=== PATIENT | female | born 1930 | race Caucasian/White ===

== ENCOUNTER → 2016-07-14 | Outpatient (CLI) | payer OTHER ==
[~2016-07-14] MED LIST: ACET-1138 PO; AMLO-110 PO; ASPEC81 PO; ATOR-22 PO; DVN/160 PO; DVN80 PO; EZET10TA63 PO; FURO-85 PO; GLC/500 PO; GLIP-199 PO; MELO7.5T5 PO; METH-589 PO; METO50TA16 PO; MULT-506 PO; ONDA8TAB6 PO; REPA1TAB42 PO; ULT50X PO
--- NOTE | 2016-07-14 16:27 | DIAGNOSTIC IMAGING REPORT ---
BILATERAL CAROTID DOPPLER STUDY HISTORY: Preop. CAROTID BRUIT COMPARISON: None. TECHNIQUE: Real-time, grayscale, and color Doppler sonography of the carotid arteries was performed. Imaging reviewed in the transverse and longitudinal planes. All measurements were calculated based on NASCET criteria. FINDINGS: Antegrade flow is seen in the bilateral vertebral arteries. The brachial pressures are hemodynamically similar. Mild calcified plaque within the bilateral carotid bifurcations. The peak systolic velocity within the right ICA is 53 cm/s. The right systolic ratio is 0.5. The peak systolic velocity within the left ICA is 71 cm/s. The left systolic ratio is 0.8. IMPRESSION: No hemodynamically significant stenosis seen within the carotid arteries. Electronically signed by: Filemon Boyd M.D. 07/14/2016 4:26 PM Dictated Date/Time: 07/14/2016 4:25 PM
== END | disposition home or self-care (01) ==
LOC: C.ULTR 15:37
PROVIDERS: ATTEND Anesthesiology
DX: R09.89 Other specified symptoms and signs involving the circulatory and respiratory systems (principal)

== ENCOUNTER 2016-07-27 07:38 | Inpatient (IN) | payer OTHER ==
[2016-05-03 11:14] VITALS: BMI 27.0
--- NOTE | 2016-05-03 12:03 | PAT Medication Instructions ---
Service Date May 03, 2016. Current Home Medication List Atorvastatin (Lipitor), 20 MG PO HS Ezetimibe (Zetia), 10 MG PO HS Furosemide (Lasix), 20 MG PO QAM Glipizide (Glipizide Er), 1 TAB PO for AM Meloxicam (Mobic), 15 MG PO QPM Metformin Hcl (Glucophage), 500 MG PO TID Methimazole (Methimazole ), 5 MG PO QPM Metoprolol Tartrate (Lopressor) (Lopressor), 50 MG PO QAM Valsartan (Diovan), 160 MG PO QAM Valsartan (Diovan), 80 MG PO QPM Medication Instructions For Your Scheduled Surgery - Per surgeon's instructions: Meloxicam (Mobic), 15 MG PO QPM - Hold the following medications 48 hours prior to surgery: Metformin Hcl (Glucophage), 500 MG PO TID - Hold the following medications 24 hours prior to surgery: Valsartan (Diovan), 160 MG PO QAM Valsartan (Diovan), 80 MG PO QPM - Hold the following medications the morning of surgery: Furosemide (Lasix), 20 MG PO QAM Glipizide (Glipizide Er), 1 TAB PO for AM - Take the following medications the morning of surgery with a sip of water OTHERWISE NOTHING TO EAT OR DRINK AFTER MIDNIGHT: Metoprolol Tartrate (Lopressor) (Lopressor), 50 MG PO QAM - Take the following medications as scheduled the night before surgery: Atorvastatin (Lipitor), 20 MG PO HS Ezetimibe (Zetia), 10 MG PO HS Methimazole (Methimazole ), 5 MG PO QPM If you have any questions please call us at [phone] (Irina Ramsey PA-C ) or [phone] or [phone]
[2016-05-03 13:05] LABS: URINE APPEARANCE CLEAR (CLEAR); URINE BILIRUBIN NEG (NEG); URINE COLOR YELLOW; URINE NITRITE NEG (NEG); URINE PH 7.5 (4.5-7.5); UROBILINOGEN NEG (NEG)
[2016-05-03 13:09] LABS: MANUAL MICROSCOPIC REQUIRED? NO; REVIEW REQ? NO
[2016-05-03 13:16] LABS: PARTIAL THROMBOPLASTIN RATIO 0.9; PROTHROMBIN TIME (PATIENT) 11.1 SECONDS (9.0-12.0)
[2016-05-03 13:22] LABS: BASO % 0.7 %; BASO ABS # 0.03 K/uL (0-0.2); COMPLETE YES; HEMATOCRIT 39.4 % (37-47); IG% 0.2 %; LYMPH % 27.5 %; LYMPH ABS # 1.22 K/uL (1.2-3.4); MEAN CELL VOLUME 88.1 fL (80-100); MEAN CORPUSCULAR HEMOGLOBIN 31.5 pg (25-34); MEAN CORPUSCULAR HGB CONC 35.8 g/dl (32-36); MEAN PLATELET VOLUME 10.1 fL (7.4-10.4); MONO % 7.7 %; NEUT % 61.9 %; PLATELET COUNT 115 K/uL (130-400); RED BLOOD COUNT 4.47 M/uL (4.2-5.4); WHITE BLOOD COUNT 4.43 K/uL (4.8-10.8)
[2016-07-14 14:22] VITALS: BMI 27.0
--- NOTE | 2016-07-14 15:11 | PAT Medication Instructions ---
Service Date Jul 14, 2016. Current Home Medication List Amlodipine (Norvasc), 5 MG PO QAM Atorvastatin (Lipitor), 20 MG PO HS Ezetimibe (Zetia), 10 MG PO HS Glipizide (Glipizide Er), 1 TAB PO QAM Metformin Hcl (Glucophage), 500 MG PO TID Methimazole (Methimazole ), 5 MG PO TID Metoprolol Tartrate (Lopressor) (Lopressor), 50 MG PO BID Multivitamin (Multivitamin), 1 TAB PO QAM Repaglinide (Prandin), 1 MG PO TID Medication Instructions For Your Scheduled Surgery - Hold the following medications 48 hours prior to surgery: Metformin Hcl (Glucophage), 500 MG PO TID - Hold the following medications the morning of surgery: Glipizide (Glipizide Er), 1 TAB PO QAM Multivitamin (Multivitamin), 1 TAB PO QAM Repaglinide (Prandin), 1 MG PO TID - Take the following medications the morning of surgery with a sip of water: Amlodipine (Norvasc), 5 MG PO QAM Methimazole (Methimazole ), 5 MG PO TID Metoprolol Tartrate (Lopressor) (Lopressor), 50 MG PO BID - Hold the following medications as scheduled the night before surgery: Ezetimibe (Zetia), 10 MG PO HS - Take the following medications as scheduled the night before surgery: Atorvastatin (Lipitor), 20 MG PO HS Methimazole (Methimazole ), 5 MG PO TID Metoprolol Tartrate (Lopressor) (Lopressor), 50 MG PO BID Repaglinide (Prandin), 1 MG PO TID If you have any questions please call us at [phone] (Luda Merchant PA-C) or [phone] or [phone]
--- NOTE | 2016-07-26 12:04 | HISTORY & PHYSICAL EXAMINATION ---
DATE OF ADMISSION: 07/27/2016 CHIEF COMPLAINT: Left hip pain. 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 She has significant pain and limitation with any activities of daily living. She has pain with prolonged weightbearing and standing activities. She has difficulty in any kneeling, bending, or squatting activities. These are affecting her ability to perform steps, go shopping, etc. PAST MEDICAL HISTORY: Type 2 diabetes, hyperlipidemia, hypertension. PAST SURGICAL HISTORY: Left mastectomy, x3, thyroid biopsy. MEDICATIONS: Diovan 160 mg b.i.d., Glucotrol-XL 10 mg daily, Lasix 20 mg daily, Lipitor 20 mg at bedtime, metformin HCL 500 mg 1 tablet 3 times daily with meals, Mobic 15 mg daily, Tapazole 5 mg daily, Toprol-XL 50 mg daily, Zetia 10 mg daily. ALLERGIES: ACTOS, CODEINE, LATEX. SOCIAL HISTORY AND REVIEW OF SYSTEMS: Noncontributory. PHYSICAL EXAMINATION: GENERAL: Well-nourished, well-developed elderly female who appears her stated age. HEAD, EYES, EARS, NOSE, AND THROAT: Normocephalic, atraumatic, extraocular movements intact, oropharynx pink and moist. NECK: Supple without adenopathy. LUNGS: Clear to auscultation bilaterally. HEART: Regular rate and rhythm. ABDOMEN: Soft, nontender, nondistended, obese. EXTREMITIES: The upper extremity within normal limits. The left hip demonstrates limited range of motion. There is significant limitation of internal/external rotation with pain at end range. X-RAYS: X-rays were reviewed. She has severe osteoarthritis about the left hip with complete loss of the joint space. There is evidence of osteophyte formation about the femoral head and acetabulum. There is subchondral sclerosis. ASSESSMENT: Left hip degenerative joint disease. PLAN: Risks versus benefits were discussed. Consent was obtained. The patient's primary care physician is Dr. Sanjeev Mason. Her profiling machine set up operator is Dr. Hope. Will proceed with left total hip arthroplasty upon preop workup and medical clearance.
[2016-07-27] VITALS (10 sets, daily range): BP systolic 109–157; BP diastolic 62–76; PULSE 71–80; TEMP 36.5–36.8; O2SAT 97–100; Ht 162.6 cm; Wt 71.7 kg
[~2016-07-27] VITALS: Ht 162.6 cm; Wt 71.7 kg
[2016-07-27] MEDS: TRANEXAMIC ACID INJ 1,000 MG in SODIUM CHLORIDE 0.9% 100ML 100 ML IV SCH ×2 (06:30→09:16)
[~2016-07-27 07:38] MED LIST changes: -ACET-1138 PO; +ACETAMINOPHEN 500 MG TAB PO SCH; -ASPEC81 PO; +BUPIVACAINE 0.5 % 5 MG/1 ML PF 10ML VIAL ONE; +CEFAZOLIN 1000MG/55 ML D5W 55 ML IV SCH; +CeleBREX 200 MG CAP PO SCH; +DEXAMETHASONE 4 MG TAB PO SCH; -DVN/160 PO; -DVN80 PO; +FAMOTIDINE 20 MG TAB PO SCH; -FURO-85 PO; +GABAPENTIN 300 MG CAP PO SCH; +LACTATED RINGER'S 1000ML 1,000 ML IV SCH; +LACTATED RINGER'S 1000ML IV SCH; -MELO7.5T5 PO; +METOCLOPRAMIDE HCL 10 MG TAB PO SCH; -ONDA8TAB6 PO; +ROPIVACAINE 5MG/ML 30 ML 150 MG, BUPIVACAINE/EPINEPHR 0.5% MPF 30 ML, KETOROLAC TROMETH... INFIL SCH; -ULT50X PO
[2016-07-27] MEDS ORDERED: EpHEDrine SULFATE INJ 50 MG/ML AMP IV PRN (07:45)
[2016-07-27] MEDS ORDERED: ATROPINE SULFATE 0.1 MG/ML 5ML SYR IV PRN (07:45)
[2016-07-27] MEDS ORDERED: ONDANSETRON INJ 2 MG/ML 2 ML VIAL IV PRN ×2 (07:45→11:30)
[2016-07-27] MEDS ORDERED: FENTANYL CITRATE INJ 50 MCG/1 ML 2 ML VIAL IV PRN (07:45)
--- NOTE | 2016-07-27 08:11 | History & Physical Bridge Note ---
H&P Re-Evaluation Bridge Note: I have examined the patient, reviewed the History & Physical and in the interval since the performance of the History & Physical I have noted the following changes of clinical significance: No changes noted
[2016-07-27] MEDS ORDERED: FENTANYL CITRATE INJ 50 MCG/1 ML 2 ML VIAL ONE (08:37)
[2016-07-27] MEDS ORDERED: BACITRACIN 50000 UNIT VIAL ONE (09:43)
[2016-07-27] MEDS ORDERED: ORTHO JOINT ANESTHETIC ONE (09:43)
[2016-07-27] MEDS ORDERED: POVIDONE-IODINE OP SOLN 30 ML BTL ONE (09:43)
--- NOTE | 2016-07-27 11:00 | [facility] Post Operative Brief Note ---
Immediate Operative Summary Operative Date Jul 27, 2016. Pre-Operative Diagnosis Left hip degenerative joint disease Post-Operative Diagnosis Left hip degenerative joint disease Procedure(s) Performed Right total hip arthroplasty-Uncemented Surgeon Dr. Flores Survey Project Manager Surgeon(s) Sarwat Cabrera PA-C Estimated Blood Loss 100 ml Findings severe OA hip Specimens A. Left Femur Head Disposition Recovery Room / PACU
[2016-07-27] MEDS ORDERED: PHENYLEPHRINE 100MCG/ML 5ML SYR ONE (11:11)
[2016-07-27] MEDS ORDERED: PROPOFOL IV EMULSION 10 MG/ML 20 ML VIAL IV ONE (11:11)
[2016-07-27] MEDS ORDERED: LIDOCAINE HCL 2% 2 ML VIAL (20MG/ML) ONE (11:11)
[2016-07-27] MEDS ORDERED: OXYCODONE HCL IR 5 MG TAB (IMMEDIATE RELEASE) PO PRN (11:30)
[2016-07-27] MEDS ORDERED: ZOLPIDEM TARTRATE 5 MG TAB PO PRN (11:30)
[2016-07-27] MEDS ORDERED: DiphenhydrAMINE HCL 50 MG/ML VIAL IV PRN (11:30)
[2016-07-27] MEDS ORDERED: HYDROmorphone INJ 1 MG/ML SYR IV PRN (11:30)
[2016-07-27] MEDS ORDERED: BISACODYL 10 MG SUPP PR PRN (11:30)
[2016-07-27] MEDS ORDERED: MAGNESIUM HYDROXIDE SUSP 30 ML UDC PO PRN (11:30)
[2016-07-27] MEDS ORDERED: ALUMINUM/MAGNESIUM/SIMETH (MAALOX MAX) 30 ML UDC PO PRN (11:30)
--- NOTE | 2016-07-27 12:17 | DIAGNOSTIC IMAGING REPORT ---
LEFT PELVIS/UNILATERAL HIP 1 VIEW CLINICAL HISTORY: IN PACU - A/P PELVIS and LATERAL HIP INCLUDING ALL OF IMPLANT COMPARISON: None. DISCUSSION: Total left hip replacement. Good contact between prosthetic and underlying bone. Old left pubic ring fracture. Expected postoperative change IMPRESSION: Left hip replacement in good position. Old pelvic ring fracture Electronically signed by: Lukasz Negrete M.D. 07/27/2016 12:15 PM Dictated Date/Time: 07/27/2016 12:14 PM
[2016-07-27] MEDS: FERROUS GLUCONATE 324 MG TAB PO SCH ×2 (12:30→17:42)
--- NOTE | 2016-07-27 13:50 | OPERATIVE REPORT ---
DATE OF OPERATION: 07/27/2016 PREOPERATIVE DIAGNOSIS: Osteoarthritis left hip. POSTOPERATIVE DIAGNOSIS: Osteoarthritis left hip. PROCEDURE: Left connective total hip arthroplasty. SURGEON: Dr. Flores. MUSIC ADAPTER: MARI Flores. ANESTHESIA: Spinal. COMPLICATIONS: None. OPERATION AND FINDINGS: DESCRIPTION OF PROCEDURE: Following induction of adequate spinal anesthesia, the patient was placed in right lateral decubitus position and left Nomi-Langenbeck incision was made. Subcutaneous tissue was sharply dissected.? Electrocautery used for hemostasis.? The fascia was incised throughout the length of the wound and a Hutchison scissors placed beneath the short external rotators.? The pyriformis was tagged with #1 Vicryl. The short external rotators were divided from the posterior aspect of the femur using electrocautery. These were swept posteriorly. A T-capsulotomy incision was made and the hip was dislocated using a combination of flexion, adduction, and internal rotation. Exposure of the femoral neck with old-style Hohmann and a blunt Hohmann was carried out and a femoral rasp was utilized as a guide for making the appropriate level femoral neck cut. This bone fragment was removed and reserved on the back table. Next, attention was turned to the acetabulum where bone hook was used to retract the femur while the offset retractors were placed anterior and posteriorly.? A double-angled Hohmann was placed in superior and anterior position exposing the acetabulum nicely.? Acetabular labrum as well as posterior capsule elements were removed using a long knife and a long pickup.? Fovea centralis was cleared of all soft tissue.? Sequential reamings were carried up to an acetabular reamer used and decision was made to proceed with impaction of a 50 ?trabecular metal cup.? This was impacted and held using a single 35 mm bone screw. ?The acetabular liner was placed with 15 of elevated posterior wall in the superior and posterior position. ?Next, attention was turned to the femoral portion of the case where a Bovie and pickup was used to further clear short external rotators from their insertion on the femur. Box osteotome was used to gain access to the femoral canal and the T-handled rasp and a rattail rasp were used to further open and lateral the canal.? Sequentially raspings were carried up to a 5 which gave good fit and fill of the proximal femur. A trial reduction was carried out and 5 offset femoral neck component was chosen as the size to be used. ?A -2.5 x 36 ceramic femoral head was impacted into position, +0 head was utilized. ?The trial reduction was stable in all degrees of rotation with no [id number] impingement.? The hip was dislocated. The trial components were removed and the final femoral stem, neck, and femoral head combination were assembled on the back table and impacted into position.? Hip was relocated.? Range of motion checked once again successful and the wound was irrigated. The pyriformis repaired to the greater trochanter using #1 Vicryl [id number] suture.? A Hemovac drain was placed and the fascia was closed using #1 Vicryl, subcutaneous tissue was closed using 0 Dexon, and skin was closed with glenys. Sterile dressing of Adaptic, 4 x 4's, ABDs, and foam tape was applied. The patient tolerated the procedure well. Due to the complex nature of the procedure, the entire surgery was performed with the operational assistance of Sarwat Cabrera PA-C. The sales assistant, under direct supervision, was involved in the actual performance of all aspects of the surgical procedure including hemostasis, tissue retraction and incision, instrument management, patient positioning, and wound closure. I attest to the content of the Intraoperative Record and any orders documented therein. Any exceptio ns are noted below.
--- NOTE | 2016-07-27 13:51 | Anesthesiology Progress Note ---
Anesthesia Post Op Note Date & Time Jul 27, 2016 at 13:50 Vital Signs Pain Intensity: 0 Vital Signs Past 12 Hours Date Time Temp Pulse Resp B/P Pulse Ox O2 Delivery O2 Flow Rate FiO2 07/27/16 13:11 65 14 97 07/27/16 13:11 64 14 07/27/16 13:08 104/46 07/27/16 13:06 64 11 98 07/27/16 13:06 64 11 07/27/16 13:03 108/49 07/27/16 13:01 70 16 07/27/16 13:01 69 16 100 07/27/16 12:58 89/59 07/27/16 12:56 67 17 98 07/27/16 12:56 67 17 07/27/16 12:53 97/48 07/27/16 12:51 62 12 07/27/16 12:51 62 12 99 07/27/16 12:48 98/40 07/27/16 12:46 69 16 100 07/27/16 12:46 68 16 07/27/16 12:43 102/48 07/27/16 12:41 63 12 100 07/27/16 12:41 63 12 07/27/16 12:38 109/48 07/27/16 12:36 59 11 07/27/16 12:36 59 11 100 07/27/16 12:33 109/56 07/27/16 12:31 60 11 100 07/27/16 12:31 60 11 07/27/16 12:30 36.6 07/27/16 12:28 114/50 07/27/16 12:26 67 13 100 07/27/16 12:26 66 13 07/27/16 12:23 92/51 07/27/16 12:21 58 14 100 07/27/16 12:21 60 14 07/27/16 12:18 103/51 07/27/16 12:16 56 14 100 07/27/16 12:16 56 14 07/27/16 12:13 100/54 07/27/16 12:11 61 13 07/27/16 12:11 61 13 100 07/27/16 12:08 124/61 07/27/16 12:06 64 13 07/27/16 12:06 64 13 100 07/27/16 12:05 64 16 100 07/27/16 12:05 63 16 07/27/16 12:03 97/39 07/27/16 12:00 60 10 07/27/16 12:00 60 10 100 07/27/16 11:58 113/52 07/27/16 11:55 62 11 07/27/16 11:55 63 11 100 07/27/16 11:53 114/65 07/27/16 11:50 61 10 07/27/16 11:50 62 10 100 07/27/16 11:48 108/57 07/27/16 11:45 63 13 100 07/27/16 11:45 63 13 07/27/16 11:43 121/58 07/27/16 11:40 63 15 07/27/16 11:40 63 15 100 07/27/16 11:38 115/61 07/27/16 11:35 74 16 07/27/16 11:35 74 16 100 07/27/16 11:33 119/57 07/27/16 11:30 65 20 07/27/16 11:30 65 20 100 07/27/16 11:28 134/74 07/27/16 11:25 65 15 112/55 83 07/27/16 11:25 36.9 66 14 112/55 100 Nasal Cannula 3 07/27/16 11:25 63 15 07/27/16 08:34 97 Room Air 07/27/16 08:23 36.7 71 18 157/63 Notes Mental Status: alert / awake / arousable, participated in evaluation Pt Amnestic to Procedure: Yes Nausea / Vomiting: adequately controlled Pain: adequately controlled Airway Patency, RR, SpO2: stable & adequate BP & HR: stable & adequate Hydration State: stable & adequate Neuraxial Anesthesia: was administered, sensory block is resolving Anesthetic Complications: no major complications apparent Noted patient with slight pupillary difference and one eye lid did not close as well as the other. When questioned, patient stated this happened after a fall and was told it had something to do with the "eye muscles not working well." She denied this was a new problem and otherwise was awake and conversant and responding appropriately so deemed ok for transfer to the floor.
[2016-07-27] MEDS ORDERED: GLUCOSE 10 TABS/TUBE PO PRN (15:15)
[2016-07-27] MEDS ORDERED: GLUCOSE 40% GEL 15 GM TUBE PO PRN (15:15)
[2016-07-27] MEDS ORDERED: DEXTROSE 50% 50 ML SYR IV PRN (15:15)
[2016-07-27] MEDS ORDERED: GLUCAGON FOR INJ 1 MG VIAL SQ PRN (15:15)
[2016-07-27] MEDS ORDERED: FLUCONAZOLE 100 MG TAB PO ONE (15:30)
[2016-07-27] MEDS ORDERED: NURSING DECISION MEDICATION ORDER SCH (15:45)
[2016-07-27] MEDS: SODIUM CHLORIDE 0.9% 1000ML 1,000 ML IV SCH (15:59)
[2016-07-27] MEDS ORDERED: MICONAZOLE NITRATE POWDER 43 GM EXT PRN (16:00)
[2016-07-27] MEDS: METHIMAZOLE 5 MG TAB PO SCH ×2 (16:01→21:30)
[2016-07-27] MEDS: ACETAMINOPHEN 500 MG TAB PO SCH ×2 (16:06→21:32)
[2016-07-27] MEDS: REPAGLINIDE 1 MG TAB PO SCH (17:42)
[2016-07-27] MEDS: CEFAZOLIN IV 1,000 MG in DEXTROSE 5% 50ML 50 ML IV SCH (17:43)
[2016-07-27] MEDS ORDERED: NURSING VERBAL MED ORDER ONE (17:45)
[2016-07-27] MEDS: INSULIN ASPART 100 UNITS/ML 3 ML PEN SC SCH ×2 (17:50→21:41)
[2016-07-27] MEDS ORDERED: NYSTATIN CR 15 GM TUBE EXT PRN (18:00)
[2016-07-27] MEDS ORDERED: INSULIN ASPART 100 UNITS/ML 3 ML PEN SC SCH (21:00)
[2016-07-27] MEDS: SENNA 8.6 MG TAB PO SCH (21:30)
[2016-07-27] MEDS: DOCUSATE SODIUM 100 MG CAP PO SCH (21:30)
[2016-07-27] MEDS: ASPIRIN 81 MG ECTAB PO SCH (21:30)
[2016-07-27] MEDS: EZETIMIBE 10MG TAB PO SCH (21:30)
[2016-07-27] MEDS: METOPROLOL TARTRATE 50 MG TAB PO SCH (21:31)
[2016-07-27] MEDS: ATORVASTATIN 20 MG TAB PO SCH (21:33)
--- NOTE | 2016-07-27 22:21 | CONSULTATION REPORT ---
DATE OF CONSULTATION: 07/27/2016 CHIEF COMPLAINT: Left hip pain. HISTORY OF PRESENT ILLNESS: This is an 86-year-old female with history of severe osteoarthritis who failed outpatient conservative management, admitted to the hospital for left total hip arthroplasty. Currently, the patient denies any complaints. PAST MEDICAL HISTORY: Significant for type 2 diabetes mellitus, hyperlipidemia, hypertension. REVIEW OF SYSTEMS: Negative except as above. Ten out of 14 systems reviewed. PAST SURGICAL HISTORY: Left mastectomy, , thyroid biopsy, breast cancer. MEDICATIONS: Oral Diovan 160 mg p.o. b.i.d., Glucotrol XL 10 mg daily, Lasix 20 mg daily, Lipitor 20 mg at bedtime, metformin 500 mg 1 tablet 3 times a day with meals, Mobic 15 mg daily, Tapazole 5 mg p.o. daily, Toprol-XL 50 mg p.o. daily, Zetia 10 mg p.o. daily. ALLERGIES: CODEINE, LATEX, ACTOS. SOCIAL HISTORY: Does not smoke, does not drink, does not use drugs. FAMILY HISTORY: Significant for coronary artery disease. PHYSICAL EXAMINATION: GENERAL: Not in acute distress. HEENT: Normocephalic, atraumatic. PERRLA, EOMI. Mouth moist, no lesions. NECK: No JVD. Trachea midline. Thyroid is not enlarged. LUNGS: Clear to auscultation bilateral. No wheezes, no rhonchi. HEART: S1, S2. RRR. ABDOMEN: Soft, nontender, nondistended. Bowel sounds present bilateral. SKIN: No rash. No jaundice. EXTREMITIES: No clubbing, cyanosis or edema. IMAGING: Hip, pelvis x-ray: Left hip replacement in good position, old pelvic ring fracture. LABORATORIES: Not done except for glucose in the range of 206-232. Urinalysis was done before but not to date. ASSESSMENT AND PLAN: This is an 86-year-old female who was admitted for a left total hip arthroplasty and we are consulted for medical management. 1. Type 2 diabetes mellitus, on multiple oral medicines and not on insulin. There is no recent hemoglobin A1c which we will check during this admission. I would definitely hold metformin and may use glipizide 10 mg daily if patient eats breakfast and further meals. Can restart Prandin again if patient will eat. Due to patient receiving dexamethasone, her sugars may be elevated and therefore should be on insulin sliding scale as well as checking blood sugars before mealtime and bedtime. 2. History of hypertension and hyperlipidemia. Continue Zetia, metoprolol 50 mg p.o. b.i.d. 3. Hyperactive thyroid. Continue methimazole 5 mg p.o. t.i.d. Follow up with endocrinology. 4. Status post left total hip arthroplasty. DVT prophylaxis, pain management, PT, OT, allow placement as per surgery. The patient is a full code. Time spent doing this consult is 35 minutes. Thank you for consulting our group. HARPAL
[2016-07-28] VITALS (7 sets, daily range): BP systolic 118–132; BP diastolic 65–74; PULSE 66–75; TEMP 36.4–36.5; O2SAT 96–100
[2016-07-28] MEDS: CEFAZOLIN IV 1,000 MG in DEXTROSE 5% 50ML 50 ML IV SCH (01:57)
[2016-07-28] MEDS: SODIUM CHLORIDE 0.9% 1000ML 1,000 ML IV SCH (01:58)
[2016-07-28] MEDS: ACETAMINOPHEN 500 MG TAB PO SCH ×3 (05:44→21:12)
[2016-07-28] MEDS ORDERED: GlipiZIDE 5 MG TABCR (GLUCOTROL XL) PO SCH ×2 (06:00→08:30)
[2016-07-28 06:42] LABS: ESTIMATED AVERAGE GLUCOSE 117 mg/dl; HA1C FLAG Normal (Normal)
[2016-07-28 07:18] LABS: COMPLETE YES; HEMATOCRIT 31.7 % (37-47); IG% 0.3 %; LYMPH % 11.3 %; LYMPH ABS # 0.67 K/uL (1.2-3.4); MEAN CELL VOLUME 88.5 fL (80-100); MEAN CORPUSCULAR HEMOGLOBIN 30.2 pg (25-34); MEAN CORPUSCULAR HGB CONC 34.1 g/dl (32-36); MEAN PLATELET VOLUME 9.2 fL (7.4-10.4); MONO % 7.6 %; NEUT % 80.8 %; PLATELET COUNT 118 K/uL (130-400); RED BLOOD COUNT 3.58 M/uL (4.2-5.4); WHITE BLOOD COUNT 5.91 K/uL (4.8-10.8)
[2016-07-28 07:44] LABS: BUN/CREATININE RATIO 25.7 (10-20); CALCIUM 8.5 mg/dl (8.5-10.1); CREATININE 1.1 mg/dl (0.60-1.20); POTASSIUM 4.1 mmol/L (3.5-5.1)
--- NOTE | 2016-07-28 07:52 | Orthopedic Progress Note ---
Orthopedic Progress Note Date of Service Jul 28, 2016. Subjective Post OP Day: 1 Reports: feeling well Objective N/V intact, dressing C/D/I (Hemovac in place, will be d/c'd), toes mobile Date Time Temp Pulse Resp B/P Pulse Ox O2 Delivery O2 Flow Rate FiO2 07/28/16 07:12 Room Air 07/28/16 03:32 36.5 75 16 127/65 99 Room Air 07/27/16 23:25 Room Air 07/27/16 23:03 36.5 77 16 126/69 99 Room Air 07/27/16 21:26 80 129/69 07/27/16 20:16 36.5 77 16 109/62 100 Nasal Cannula 2.0 07/27/16 19:30 Nasal Cannula 2.0 07/27/16 17:21 36.5 73 16 123/71 99 Nasal Cannula 3.0 07/27/16 16:54 Nasal Cannula 3.0 07/27/16 16:24 36.5 75 16 135/74 100 Nasal Cannula 3.0 07/27/16 15:20 36.5 76 17 134/72 100 Nasal Cannula 3.0 07/27/16 14:50 75 16 127/76 100 07/27/16 14:20 100 Nasal Cannula 3.0 07/27/16 14:20 36.8 75 18 119/68 100 Nasal Cannula 3.0 07/27/16 14:04 71 14 99 07/27/16 14:04 71 14 07/27/16 14:03 124/60 07/27/16 13:59 73 14 100 07/27/16 13:59 63 14 07/27/16 13:58 122/54 07/27/16 13:54 69 12 07/27/16 13:54 69 12 100 07/27/16 13:53 118/62 07/27/16 13:49 72 12 07/27/16 13:49 71 12 100 07/27/16 13:48 36.9 137/65 07/27/16 13:47 73 20 07/27/16 13:47 72 20 99 07/27/16 13:43 127/61 07/27/16 13:42 74 15 07/27/16 13:42 74 15 99 07/27/16 13:38 107/44 07/27/16 13:37 69 11 98 07/27/16 13:37 68 11 07/27/16 13:33 108/49 07/27/16 13:32 70 13 95 07/27/16 13:32 70 13 07/27/16 13:28 104/45 07/27/16 13:27 70 11 100 07/27/16 13:27 70 11 07/27/16 13:23 117/48 07/27/16 13:22 73 9 89 07/27/16 13:22 72 9 07/27/16 13:18 110/42 07/27/16 13:17 69 16 99 07/27/16 13:17 69 16 07/27/16 13:13 102/52 07/27/16 13:12 65 12 97 07/27/16 13:12 65 12 07/27/16 13:11 65 14 97 07/27/16 13:11 64 14 07/27/16 13:08 104/46 07/27/16 13:06 64 11 98 07/27/16 13:06 64 11 07/27/16 13:03 108/49 07/27/16 13:01 70 16 07/27/16 13:01 69 16 100 07/27/16 12:58 89/59 07/27/16 12:56 67 17 98 07/27/16 12:56 67 17 07/27/16 12:53 97/48 07/27/16 12:51 62 12 07/27/16 12:51 62 12 99 07/27/16 12:48 98/40 07/27/16 12:46 69 16 100 07/27/16 12:46 68 16 07/27/16 12:43 102/48 07/27/16 12:41 63 12 100 07/27/16 12:41 63 12 07/27/16 12:38 109/48 07/27/16 12:36 59 11 07/27/16 12:36 59 11 100 07/27/16 12:33 109/56 07/27/16 12:31 60 11 100 07/27/16 12:31 60 11 07/27/16 12:30 36.6 07/27/16 12:28 114/50 07/27/16 12:26 67 13 100 07/27/16 12:26 66 13 07/27/16 12:23 92/51 07/27/16 12:21 58 14 100 07/27/16 12:21 60 14 07/27/16 12:18 103/51 07/27/16 12:16 56 14 100 07/27/16 12:16 56 14 07/27/16 12:13 100/54 07/27/16 12:11 61 13 07/27/16 12:11 61 13 100 07/27/16 12:08 124/61 07/27/16 12:06 64 13 07/27/16 12:06 64 13 100 07/27/16 12:05 64 16 100 07/27/16 12:05 63 16 07/27/16 12:03 97/39 07/27/16 12:00 60 10 07/27/16 12:00 60 10 100 07/27/16 11:58 113/52 07/27/16 11:55 62 11 07/27/16 11:55 63 11 100 07/27/16 11:53 114/65 07/27/16 11:50 61 10 07/27/16 11:50 62 10 100 07/27/16 11:48 108/57 07/27/16 11:45 63 13 100 07/27/16 11:45 63 13 07/27/16 11:43 121/58 07/27/16 11:40 63 15 07/27/16 11:40 63 15 100 07/27/16 11:38 115/61 07/27/16 11:35 74 16 07/27/16 11:35 74 16 100 07/27/16 11:33 119/57 07/27/16 11:30 65 20 07/27/16 11:30 65 20 100 07/27/16 11:28 134/74 07/27/16 11:25 65 15 112/55 83 07/27/16 11:25 36.9 66 14 112/55 100 Nasal Cannula 3 07/27/16 11:25 63 15 07/27/16 08:34 97 Room Air 07/27/16 08:23 36.7 71 18 157/63 Laboratory Results 24 Hours: Test 07/28/16 06:53 White Blood Count 5.91 K/uL Red Blood Count 3.58 M/uL Hemoglobin 10.8 g/dL Hematocrit 31.7 % Mean Corpuscular Volume 88.5 fL Mean Corpuscular Hemoglobin 30.2 pg Mean Corpuscular Hemoglobin Concent 34.1 g/dl Platelet Count 118 K/uL Mean Platelet Volume 9.2 fL Neutrophils (%) (Auto) 80.8 % Lymphocytes (%) (Auto) 11.3 % Monocytes (%) (Auto) 7.6 % Eosinophils (%) (Auto) 0.0 % Basophils (%) (Auto) 0.0 % Neutrophils # (Auto) 4.77 K/uL Lymphocytes # (Auto) 0.67 K/uL Monocytes # (Auto) 0.45 K/uL Eosinophils # (Auto) 0.00 K/uL Basophils # (Auto) 0.00 K/uL Assessment & Plan Assessment: 86 yo female stable POD #1 s/p left YELENA Plan: 1. Med management 2. DVT prophylaxis- ASA, TEDs, SCDs 3. PT/OT 4. D/C planning- home w/ HH
[2016-07-28] MEDS: REPAGLINIDE 1 MG TAB PO SCH ×3 (08:38→17:58)
[2016-07-28] MEDS: ASPIRIN 81 MG ECTAB PO SCH ×2 (08:38→21:12)
[2016-07-28] MEDS: FERROUS GLUCONATE 324 MG TAB PO SCH ×3 (08:38→17:45)
[2016-07-28] MEDS: MULTIVITAMIN TAB PO SCH (08:39)
[2016-07-28] MEDS: PANTOprazole SOD 40 MG TAB PO SCH (08:39)
[2016-07-28] MEDS: METHIMAZOLE 5 MG TAB PO SCH ×3 (08:39→21:12)
[2016-07-28] MEDS: AMLODIPINE BESYLATE 5 MG TAB PO SCH (08:39)
[2016-07-28] MEDS: METOPROLOL TARTRATE 50 MG TAB PO SCH ×2 (08:39→21:14)
[2016-07-28] MEDS: INSULIN ASPART 100 UNITS/ML 3 ML PEN SC SCH ×4 (08:40→21:00)
[2016-07-28] MEDS: DOCUSATE SODIUM 100 MG CAP PO SCH ×2 (09:03→21:00)
[2016-07-28] MEDS: TRAMADOL HCL 50 MG TAB PO PRN (17:24)
--- NOTE | 2016-07-28 20:24 | Progress Note ---
Subjective Date of Service: Jul 28, 2016. Subjective Pt evaluation today including: conversation w/ patient, conversation w/ family (daughter at bedside), physical exam, chart review, lab review, review of inpatient medication list Pain: left hip - mild PO Intake: normal no issues overnight patient feels well c/o dry skin and itchy rash in groin areas states she had a bowel movement yesterday passing flatus today Problem List Medical Problems: (1) Contusion of multiple sites Status: Acute (2) Fall Status: Acute (3) Hyperglycemia Status: Acute (4) Pelvis fracture Status: Acute (5) Traumatic retroperitoneal hemorrhage Status: Acute Review of Systems Constitutional: No fever Respiratory: No shortness of breath Cardiac: No chest pain Abdomen: No pain Objective Vital Signs Date Time Temp Pulse Resp B/P Pulse Ox O2 Delivery O2 Flow Rate FiO2 07/28/16 16:00 Room Air 07/28/16 15:04 36.4 67 16 130/74 100 Room Air 07/28/16 11:56 36.5 67 16 132/72 100 Room Air 07/28/16 10:10 98 Room Air 07/28/16 09:29 36.5 71 18 130/70 98 Room Air 07/28/16 08:34 72 124/71 07/28/16 07:12 Room Air 07/28/16 03:32 36.5 75 16 127/65 99 Room Air 07/27/16 23:25 Room Air 07/27/16 23:03 36.5 77 16 126/69 99 Room Air 07/27/16 21:26 80 129/69 Physical Exam General Appearance: no apparent distress ENT: pharynx normal Neck: no JVD Respiratory/Chest: lungs clear, no respiratory distress, no accessory muscle use Cardiovascular: regular rate, rhythm, no gallop, no murmur Abdomen: normal bowel sounds, non tender, soft, no organomegaly Extremities: no pedal edema Neurologic/Psychiatric: alert, oriented x 3 Skin: + pertinent finding (candidal rash in lower skin folds of abdomen/groin) Comments: musculo - left hip dressings intact Laboratory Results Last 24 Hours Test 07/27/16 20:34 07/28/16 06:53 07/28/16 07:53 07/28/16 11:34 Bedside Glucose 286 mg/dl 215 mg/dl 267 mg/dl White Blood Count 5.91 K/uL Red Blood Count 3.58 M/uL Hemoglobin 10.8 g/dL Hematocrit 31.7 % Mean Corpuscular Volume 88.5 fL Mean Corpuscular Hemoglobin 30.2 pg Mean Corpuscular Hemoglobin Concent 34.1 g/dl Platelet Count 118 K/uL Mean Platelet Volume 9.2 fL Neutrophils (%) (Auto) 80.8 % Lymphocytes (%) (Auto) 11.3 % Monocytes (%) (Auto) 7.6 % Eosinophils (%) (Auto) 0.0 % Basophils (%) (Auto) 0.0 % Neutrophils # (Auto) 4.77 K/uL Lymphocytes # (Auto) 0.67 K/uL Monocytes # (Auto) 0.45 K/uL Eosinophils # (Auto) 0.00 K/uL Basophils # (Auto) 0.00 K/uL RDW Standard Deviation 44.6 fL RDW Coefficient of Variation 13.8 % Immature Granulocyte % (Auto) 0.3 % Immature Granulocyte # (Auto) 0.02 K/uL Sodium Level 140 mmol/L Potassium Level 4.1 mmol/L Chloride Level 108 mmol/L Carbon Dioxide Level 23 mmol/L Anion Gap 9.0 mmol/L Blood Urea Nitrogen 28 mg/dl Creatinine 1.10 mg/dl Est Creatinine Clear Calc Drug Dose 36.3 ml/min Estimated GFR () 53.0 Estimated GFR (Non- 45.7 BUN/Creatinine Ratio 25.7 Random Glucose 213 mg/dl Calcium Level 8.5 mg/dl Test 07/28/16 17:01 Bedside Glucose 153 mg/dl Assessment and Plan 86yo female: 1. uncontrolled T2DM - should improve by tonight as effects of steroids given perioperatively yesterday should be waning. Would hold the sulfonylurea while hospitalized and resume day of discharge. In meantime use novolog for correction & carb coverage. Hold on any lantus at this time. 2. candidal rash - miconazole TID scheduled. 3. thrombocytopenia - mild, and appears chronic. Check b12, folate levels in am. Check cbc in am for stability. 4. mild acute blood loss anemia - agree with ferrous sulfate or gluconate BID. 5. HTN - controlled. Continue outpatient meds. 6. s/p left THR - dvt proph, pain control, dispo - per primary ortho team 7. bowel maintenance - add miralax daughter updated will follow
[2016-07-28] MEDS: SENNA 8.6 MG TAB PO SCH (21:00)
[2016-07-28] MEDS: MICONAZOLE NITRATE POWDER 43 GM EXT SCH (21:11)
[2016-07-28] MEDS: EZETIMIBE 10MG TAB PO SCH (21:22)
[2016-07-28] MEDS: ATORVASTATIN 20 MG TAB PO SCH (21:23)
[2016-07-29] MEDS: ACETAMINOPHEN 500 MG TAB PO SCH ×3 (05:55→22:09)
[2016-07-29 06:04] LABS: HEMATOCRIT 31.1 % (37-47); MEAN CELL VOLUME 88.6 fL (80-100); MEAN CORPUSCULAR HEMOGLOBIN 30.2 pg (25-34); MEAN CORPUSCULAR HGB CONC 34.1 g/dl (32-36); MEAN PLATELET VOLUME 9.2 fL (7.4-10.4); PLATELET COUNT 107 K/uL (130-400); RED BLOOD COUNT 3.51 M/uL (4.2-5.4); WHITE BLOOD COUNT 5.11 K/uL (4.8-10.8)
[2016-07-29 06:31] LABS: CALCIUM 8.9 mg/dl (8.5-10.1); CREATININE 1.1 mg/dl (0.60-1.20); POTASSIUM 4.2 mmol/L (3.5-5.1)
[2016-07-29 07:01] VITALS: BP 135/80; PULSE 67; TEMP 36.4; O2SAT 98
[2016-07-29] MEDS: MICONAZOLE NITRATE POWDER 43 GM EXT SCH ×3 (07:23→20:50)
[2016-07-29] MEDS: MULTIVITAMIN TAB PO SCH (07:27)
[2016-07-29] MEDS: METHIMAZOLE 5 MG TAB PO SCH ×3 (07:27→20:58)
[2016-07-29] MEDS: TRAMADOL HCL 50 MG TAB PO PRN ×2 (07:27→14:30)
[2016-07-29] MEDS: PANTOprazole SOD 40 MG TAB PO SCH (07:28)
[2016-07-29] MEDS: FERROUS GLUCONATE 324 MG TAB PO SCH ×5 (07:28→17:44)
[2016-07-29] MEDS: AMLODIPINE BESYLATE 5 MG TAB PO SCH (07:28)
[2016-07-29] MEDS: REPAGLINIDE 1 MG TAB PO SCH ×3 (07:28→17:45)
[2016-07-29] MEDS: INSULIN ASPART 100 UNITS/ML 3 ML PEN SC SCH ×4 (07:32→21:05)
[2016-07-29] MEDS: METOPROLOL TARTRATE 50 MG TAB PO SCH ×2 (08:44→21:01)
[2016-07-29] MEDS: ASPIRIN 81 MG ECTAB PO SCH ×2 (08:44→20:58)
[2016-07-29] MEDS: DOCUSATE SODIUM 100 MG CAP PO SCH ×2 (08:44→20:58)
--- NOTE | 2016-07-29 09:24 | Orthopedic Progress Note ---
Orthopedic Progress Note Date of Service Jul 29, 2016. Subjective Post OP Day: 2 Reports: feeling well, pain controlled w PO medications, Denies: SOB, calf pain , chest pain, complaints, light headedness, nausea / vomiting Objective calves soft nontender, N/V intact, hip located, capillary refill less than 2 sec., dressing C/D/I, A&O x3, toes mobile Date Time Temp Pulse Resp B/P Pulse Ox O2 Delivery O2 Flow Rate FiO2 07/29/16 07:10 Room Air 07/29/16 07:01 36.4 67 16 135/80 98 Room Air 07/29/16 00:55 Room Air 07/28/16 23:53 36.4 66 16 118/70 96 Room Air 07/28/16 16:00 Room Air 07/28/16 15:04 36.4 67 16 130/74 100 Room Air 07/28/16 11:56 36.5 67 16 132/72 100 Room Air 07/28/16 10:10 98 Room Air 07/28/16 09:29 36.5 71 18 130/70 98 Room Air Laboratory Results 24 Hours: Test 07/29/16 05:43 Hematocrit 31.1 % Hemoglobin 10.6 g/dL Assessment & Plan Assessment: 86 yo female stable POD #2 s/p left YELENA Plan: 1. Med management 2. DVT prophylaxis- ASA, TEDs, SCDs 3. PT/OT 4. D/C planning- home w/ HH Sunday Inhouse Planning Pain Management: Ultram, Dilaudid, PO Tylenol DVT Prophylaxis: TEDs, SCDs, ASA Discharge Planning Discharge Planning: home with home health Pain Management: Ultram, PO Tylenol DVT Prophylaxis: TEDs, ASA Therapy: Physical Therapy, Occupational Therapy
[2016-07-29 10:38] VITALS: BP 135/80; PULSE 67; O2SAT 98
--- NOTE | 2016-07-29 10:42 | PROGRESS NOTE ---
DATE: 07/29/2016 DATE: 07/29/2016. HISTORY OF PRESENT ILLNESS: Mrs. Bentley is a very pleasant 86-year-old white female with a history of type 2 diabetes mellitus, hypertension, hypercholesterolemia, chronic thrombocytopenia, and a negative dobutamine stress echocardiogram 05/09/2016. She is currently postoperative day #2 from a left total hip arthroplasty which has been complicated by a very mild asymptomatic blood loss anemia. The patient continues to do well from a surgical standpoint. Her pain is well controlled. She has been able to ambulate with a walker, and can get in and out of bed by herself. She offers no complaints today. She denies any chest pain, heaviness, tightness, or pressure. No neck, jaw, back, or arm pain. No shortness of breath, unusual dyspnea on exertion, orthopnea or PND. She has not had any palpitations, syncope, or near syncope. She has had a bowel movement, and her appetite is good. PHYSICAL EXAMINATION: VITAL SIGNS: Temperature is 36.4 degree Celsius, pulse 67 and regular, respiratory rate 14 and unlabored, blood pressure 135/80, SPO2 is 98% on room air. GENERAL: The patient is in no acute distress. HEAD, EYES, EARS, NOSE, AND THROAT: Head is atraumatic, normocephalic. EOMs intact. Sclerae are anicteric. Facies symmetric. No perioral cyanosis. Mucous membranes moist. NECK: Without thyromegaly, adenopathy, or JVD. Carotid upstrokes are +2 bilaterally. CHEST AND LUNGS: Clear to auscultation throughout all lung brantley, no wheezes, rales or rhonchi. CARDIOVASCULAR: S1 and S2 are regular without murmur, gallop or rub. PMI is nondisplaced. No lifts, heaves, or thrills. No abdominal, aortic or renal bruits. ABDOMINAL EXAMINATION: Bowel sounds present. No masses, organomegaly or tenderness. EXTREMITIES: Without clubbing, cyanosis or edema. NEUROLOGIC EXAMINATION: The patient is awake, alert and oriented. Pleasant and cooperative. Answers questions appropriately. Speech is clear. Normal movement in bilateral upper extremities. Gait pattern not assessed. LABORATORY DATA: White blood cell count is 5.11, hemoglobin 10.6 g/dL, hematocrit 31.1%. Platelet count 107,000. Sodium is 143 mmol/L, potassium 4.2 mmol/L. BUN 29 mg/dL. Creatinine 1.10 mg/dL. Random glucose 74 mg/dL. Folate level 13.53. B12 level 401 pg/mL (reference range is 211-911 pg/mL). Please note that her RBC indices are within normal limits. ASSESSMENT: 1. Postoperative day #2 left total hip arthroplasty. 2. Surgical pain controlled. 3. Type 2 diabetes mellitus, blood sugars are controlled. 4. Hypertension, controlled. 5. Hypercholesterolemia. 6. Chronic thrombocytopenia. 7. Elevated serum folate level with normal RBC indices. 8. Negative dobutamine stress echocardiogram 05/09/2016. 9. Normal left ventricular ejection fraction 55%, aortic valve sclerosis without stenosis, trace AI, trace MR. PLAN: 1. The patient continues to do well from a medical standpoint. 2. She is aware of her mild postoperative anemia and remains asymptomatic. 3. Continue Norvasc 5 mg daily. 4. Continue Lipitor 20 mg at bedtime. 5. Continue Zetia 10 mg p.o. at bedtime. 6. Continue longterm Lopressor 50 mg b.i.d. 7. Continue Aspirin 81 mg b.i.d. 8. Continue NovoLog sliding scale insulin as well as usual dose of Prandin 1 mg t.i.d. 9. Continue ferrous gluconate t.i.d. 10. Ongoing analgesics as per ortho. 11. The patient anticipates being discharged to home tomorrow with home health services. patient financial services coordinator is already involved in her case. 12. The patient is stable from a medical standpoint for discharge to home. HARPAL
[2016-07-29 15:11] VITALS: BP 123/63; PULSE 63; TEMP 36.6; O2SAT 98
[2016-07-29 15:15] VITALS: O2SAT 98
[2016-07-29] MEDS: EZETIMIBE 10MG TAB PO SCH (20:58)
[2016-07-29] MEDS: SENNA 8.6 MG TAB PO SCH (20:58)
[2016-07-29] MEDS: ATORVASTATIN 20 MG TAB PO SCH (20:58)
[2016-07-29 21:01] VITALS: BP 145/74; PULSE 70
[2016-07-29 23:32] VITALS: BP 119/69; PULSE 67; TEMP 36.4; O2SAT 97
[2016-07-30] MEDS: ACETAMINOPHEN 500 MG TAB PO SCH ×2 (06:06→13:17)
[2016-07-30 06:33] VITALS: BP 151/61; PULSE 72; TEMP 36.9; O2SAT 98
--- NOTE | 2016-07-30 08:00 | Orthopedic Progress Note ---
Orthopedic Progress Note Date of Service Jul 30, 2016. Subjective Post OP Day: 3 Reports: feeling well, pain controlled w PO medications, Denies: SOB, calf pain , chest pain, complaints, light headedness, nausea / vomiting Objective calves soft nontender, N/V intact, hip located, capillary refill less than 2 sec., incision C/D/I, A&O x3, toes mobile Date Time Temp Pulse Resp B/P Pulse Ox O2 Delivery O2 Flow Rate FiO2 07/30/16 07:39 Room Air 07/30/16 06:33 36.9 72 16 151/61 98 Room Air 07/30/16 00:00 Room Air 07/29/16 23:32 36.4 67 16 119/69 97 Room Air 07/29/16 21:01 70 145/74 07/29/16 15:15 98 Room Air 07/29/16 15:11 36.6 63 16 123/63 98 Room Air 07/29/16 10:38 67 98 Assessment & Plan Assessment: 86 yo female stable POD #3 s/p left YELENA Plan: 1. Med management 2. DVT prophylaxis- ASA, TEDs, SCDs 3. PT/OT 4. D/C planning- home w/ HH TODAY Inhouse Planning Pain Management: Ultram, Dilaudid, PO Tylenol DVT Prophylaxis: TEDs, SCDs, ASA Discharge Planning Discharge Planning: home with home health Pain Management: Ultram, PO Tylenol DVT Prophylaxis: TEDs, ASA Therapy: Physical Therapy, Occupational Therapy
[2016-07-30] MEDS ORDERED: ULT50X PO (08:05)
[2016-07-30] MEDS ORDERED: ASPEC81 PO (08:05)
[2016-07-30] MEDS ORDERED: ACET-1138 PO (08:05)
[2016-07-30] MEDS ORDERED: ONDA8TAB6 PO (08:05)
--- NOTE | 2016-07-30 08:08 | Discharge Instructions ---
Discharge Instructions Admission Reason for Admission: Left Hip Osteoarthritis Discharge Discharge Diagnosis / Problem: LEFT YELENA Discharge Goals Goal(s): Improve function Activity Recommendations Activity Limitations: as noted below . Instructions / Follow-Up Instructions / Follow-Up ACTIVITY RECOMMENDATIONS: SELF CARE INSTRUCTIONS AFTER TOTAL HIP REPLACEMENT Until the incision and soft tissues around your hip have healed, there is a possibility that the hip prosthesis could dislocate. A. Observe the following precautions to prevent dislocation: 1. Don't bend your hip greater than 90 degrees. 2. Avoid crossing your legs or ankles while standing or lying. 3. Sit with your feet placed 6 inches apart. 4. When sitting, keep your knees below your hips. Sit on a firm surface, avoid deep, soft chairs and couches. Use an elevated toilet seat in the bathroom. 5. Don't bend over at the waist. Use a long handled shoehorn and a sock aid to help you put on your shoes and socks. A photovoltaic subcontractor can help you pick remover objects that are too high or too low to reach. 6. Keep car riding to a minimum for at least one month after surgery. B. Your balance may be shaky for a while. Use crutches or a walker until directed by your doctor. C. Use hand rails when walking on stairs. D. Wear low heeled shoes with non-slip soles. E. Be sure that your floors are free of things that could trip you - throw rugs , electrical cords, small objects. Avoid wet and waxed floors, especially with crutches and canes. F. Try to walk several times a day with rest periods between. G. Continue with all the exercises taught to you in the hospital. Again, make walking a part of your daily routine. SPECIAL CARE INSTRUCTIONS: VERY IMPORTANT TO READ AND REVIEW A. You may still be at risk for phlebitis and blood clots. 1. Wear surgical stockings (FATIMAH hose) for one month after surgery to improve circulation and reduce swelling. 2. Take Coumadin, Lovenox (blood thinning medication) or Aspirin, as directed by your doctor. 3. If taking Coumadin, have a pro-time (blood test) drawn according to your doctor's instructions. 4. If you are on Coumadin normally, your family doctor/manager supply chain should monitor your blood work. Expect a phone call the day of or the day after bloodwork is drawn to adjust your dosage. B. You must take antibiotics before having dental work, bladder, bowel and other surgery. Your doctor will provide you with a permanent card to carry describing precautions. C. Call [facility] if you have a fever, redness or swelling around the incision, cloudy drainage from incision, or sudden increase in pain in your hip, not relieved by your regular pain medication. D. Please call the office at if you have any concerns or questions about your operation or recovery. * WEAR FATIMAH HOSE 20 HOURS PER DAY FOR 4 WEEKS. * YOU SHOULD USE A WALKER OR CRUTCHES FOR 2-4 WEEKS. THIS WILL HELP PREVENT STRAIN ON YOUR HIP MUSCLE AND ALLOW IT TO HEAL PROPERLY. YOU MAY WEAN TO A CANE TOLERATED. * MOST PATIENTS WILL BE PRESCRIBED LOVENOX INJECTIONS ONCE DAILY FOR 2 WEEKS. ONCE YOU HAVE FINISHED THESE INJECTIONS, START TAKING ASPIRIN, 325 MG, TWICE DAILY FOR 2 MORE WEEKS. THIS IS YOUR BLOOD THINNER. * MOST PATIENTS WILL HAVE HOME NURSING FOR THERAPY & SUTURE REMOVAL. SUTURES SHOULD BE REMOVED 10-14 DAYS POST-OP. IF YOU DO NOT HAVE HOME NURSING PLEASE CALL TO SCHEDULE AN APPOINTMENT IF NOT PREVIOUSLY ARRANGED. [phone] FOLLOW UP VISIT: If appointment is not already scheduled: Please call [facility] to make a follow-up appointment for one month after your surgery at . Current Hospital Diet Patient's current hospital diet: Diabetes Type 2 Diet Discharge Diet Recommended Diet: Diabetes Type 2 Diet Procedures Procedures Performed: Right total hip arthroplasty-Uncemented Pending Studies Studies pending at discharge: no Laboratory Results Hemoglobin A1c Test 07/27/16 19:04 Range/Units Estimated Average Glucose 117 mg/dl Hemoglobin A1c 5.7 H 4.5-5.6 % Medical Emergencies . Who to Call and When: Medical Emergencies: If at any time you feel your situation is an emergency, please call 911 immediately. . Non-Emergent Contact Non-Emergency issues call your: Primary Care Provider . "Provider Documentation" section prepared by Lukasz Yan. VTE Core Measure Inpt VTE Proph given/why not?: Other Anticoagulation (ASA), T.E.D. Stockings, SCD's
[2016-07-30] MEDS: FERROUS GLUCONATE 324 MG TAB PO SCH ×2 (08:30→12:30)
[2016-07-30] MEDS: REPAGLINIDE 1 MG TAB PO SCH ×2 (08:33→13:12)
[2016-07-30] MEDS: INSULIN ASPART 100 UNITS/ML 3 ML PEN SC SCH ×2 (08:36→13:16)
[2016-07-30] MEDS: METOPROLOL TARTRATE 50 MG TAB PO SCH (08:37)
[2016-07-30] MEDS: TRAMADOL HCL 50 MG TAB PO PRN ×2 (08:37→13:54)
[2016-07-30] MEDS: AMLODIPINE BESYLATE 5 MG TAB PO SCH (08:37)
[2016-07-30] MEDS: ASPIRIN 81 MG ECTAB PO SCH (08:37)
[2016-07-30] MEDS: DOCUSATE SODIUM 100 MG CAP PO SCH (08:38)
[2016-07-30] MEDS: PANTOprazole SOD 40 MG TAB PO SCH (08:39)
[2016-07-30] MEDS: MULTIVITAMIN TAB PO SCH (08:39)
[2016-07-30] MEDS: METHIMAZOLE 5 MG TAB PO SCH ×2 (08:39→13:16)
[2016-07-30] MEDS: MICONAZOLE NITRATE POWDER 43 GM EXT SCH (09:00)
[2016-07-30 09:26] VITALS: BP 151/61; PULSE 72; O2SAT 98
[2016-07-30 13:29] VITALS: BP 151/61; PULSE 72; TEMP 36.9; O2SAT 98
--- NOTE | 2016-08-09 11:28 | DISCHARGE SUMMARY ---
DISCHARGE DIAGNOSIS: Degenerative joint disease, left hip. SECONDARY DIAGNOSES: Type 2 diabetes mellitus, hyperlipidemia, hypertension. CONSULTS: Dr. Enciso. COMPLICATIONS: None. PROCEDURES: Left total hip arthroplasty performed by Dr. Flores on 07/27/2016. BRIEF HISTORY: As dictated in history and physical. HOSPITAL SUMMARY: The patient was admitted on the above date and had the above-noted surgery performed which she tolerated well. Postoperatively, Dr. Enciso was consulted for postoperative medical management. On her first postoperative day, she was feeling well. Neurovascular was intact. Dressings were clean, dry and intact. Toes were mobile. Vital signs were stable and she is afebrile. Hemoglobin was 10.8 and she was started on physical therapy protocol and continued on DVT prophylaxis and pain management and medical management. By her second postoperative day, she was feeling well and pain was controlled. Calves were soft and nontender, neurovascularly intact. Dressings clean, dry and intact. Toes were mobile. Vital signs were stable. She was afebrile. Hemoglobin was 10.6 and she was continually followed by the medicine service during her stay, her blood sugars fluctuated which was expected and was continually managed by the medicine service. By her third postoperative day, she was feeling well and pain was controlled. Calves were soft and nontender. Neurovascularly was intact. Incision was benign. Toes were mobile. Vital signs were stable. She was afebrile. She was progressing with her physical therapy, ambulating 120 feet on level surfaces. She was continually remaining medically stable and orthopedically stable and by 07/30/2016 was felt she could be discharged to home with home health services. For further review, please see chart. LAB AND X-RAY DATA: As per chart. DISCHARGE INSTRUCTIONS: The patient was discharged to home in satisfactory condition on 07/30/2016. DIET: Diabetic. ACTIVITY: Follow YELENA instruction sheets and special care instructions as noted and follow up with Dr. Flores in 2 weeks. The patient to call for appointment if one has not been made for you. DISCHARGE MEDICATIONS: Acetaminophen 1000 mg p.o. q. 8 hours, aspirin 81 mg p.o. b.i.d., Zofran 8 mg p.o. q. 8 hours p.r.n., tramadol 50-100 mg p.o. q. 4 hours p.r.n. Resume amlodipine 5 mg p.o. q.a.m., atorvastatin 20 mg p.o. at bedtime, Zetia 10 mg p.o. at bedtime, glipizide 10 mg 1 tab p.o. q.a.m., metformin 500 mg p.o. t.i.d., methimazole 5 mg p.o. t.i.d., metoprolol 50 mg p.o. b.i.d., multivitamin 1 tab p.o. q.a.m. and Prandin 1 mg p.o. t.i.d.
== END 2016-07-30 14:05 | disposition home health service (06) | DRG 470 ==
LOC: ENRESERVTM → EDBD → ENRESERVDT → C.ACU 07:38 → C.3E 07:50
PROC: 0SRB0JA Replacement of Left Hip Joint with Synthetic Substitute, Uncemented, Open Approach (ICD-10-PCS; principal; 2016-07-27 10:00)
DX: M16.12 Unilateral primary osteoarthritis, left hip (principal); E11.9 Type 2 diabetes mellitus without complications; I10 Essential (primary) hypertension; E78.5 Hyperlipidemia, unspecified; E05.90 Thyrotoxicosis, unspecified without thyrotoxic crisis or storm; E78.00 Pure hypercholesterolemia, unspecified; D69.6 Thrombocytopenia, unspecified; Z91.81 History of falling; Z85.3 Personal history of malignant neoplasm of breast; Z90.12 Acquired absence of left breast and nipple; Z98.890 Other specified postprocedural states; Z82.49 Family history of ischemic heart disease and other diseases of the circulatory system; Z79.84 Long term (current) use of oral hypoglycemic drugs; Z79.899 Other long term (current) drug therapy